=== PATIENT | male | born 1965 | race Caucasian/White ===

== ENCOUNTER 2017-11-15 07:21 | Day surgery (SDC) | payer OTHER ==
[~2017-11-15 07:21] MED LIST: CEFAZOLIN 2 GM/50 ML (PMX) 50 ML IVPB; SOD CHLORIDE 0.9% 1,000 ML IV
[2017-11-15] MEDS ORDERED: DIPHENHYDRAMINE 50 MG INJ IV (10:00)
[2017-11-15] MEDS ORDERED: LABETALOL HCL 20MG INJ IV (10:00)
[2017-11-15] MEDS ORDERED: ONDANSETRON 4 MG INJ IV (10:00)
[2017-11-15] MEDS ORDERED: METOCLOPRAMIDE 10 MG INJ IV (10:00)
[2017-11-15] MEDS ORDERED: MEPERIDINE 25 MG INJ IV (10:00)
[2017-11-15] MEDS ORDERED: hydrALAzine 20 MG INJ IV (10:00)
[2017-11-15] MEDS ORDERED: MIDAZOLAM 1 MG/ML 2 ML INJ (10:19)
[2017-11-15] MEDS ORDERED: LIDOCAINE 2% (SDV) 5 ML INJ (10:19)
[2017-11-15] MEDS ORDERED: PROPOFOL 20 ML (10:19)
[2017-11-15] MEDS ORDERED: FENTAnyl 50 MCG/ML VIAL (10:19)
[2017-11-15] MEDS ORDERED: ROPIVACAINE 0.2% 20 ML VIAL (10:30)
[2017-11-15] MEDS ORDERED: CEFAZOLIN 1 GM INJ ×2 (10:41→10:42)
[2017-11-15] MEDS ORDERED: DEXAMETHASONE 4 MG/ML 1 ML INJ (10:41)
[2017-11-15] MEDS ORDERED: KETOROLAC 30 MG INJ (10:41)
[2017-11-15] MEDS ORDERED: ONDANSETRON 4 MG INJ (10:41)
[2017-11-15] MEDS ORDERED: FAMOTIDINE 20 MG INJ (10:41)
[2017-11-15] MEDS: BUPIVACAINE 0.25% (MPF) 30 ML INJ (11:02)
[2017-11-15] MEDS: POLYMYXIN/BACITRACIN 1L IRRIG (11:02)
[2017-11-15] MEDS: HYDROmorphONE 1 MG/5 ML IV SYRINGE IV ×5 (11:46→12:41)
[2017-11-15] MEDS: HYDROCODONE/APAP (5/325) TAB PO (11:47)
== END 2017-11-15 14:05 | disposition home or self-care (01) ==
LOC: SDS 07:21
DX: K40.30 Unilateral inguinal hernia, with obstruction, without gangrene, not specified as recurrent (principal)
CPT/HCPCS: 49507